=== PATIENT | female | born 1975 | race Caucasian/White ===

== ENCOUNTER 2016-12-10 19:02 | Emergency (ER) | payer SELFPAY ==
[~2016-12-10] VITALS: Wt 80.0 kg
[~2016-12-10 19:02] MED LIST: ACET325T33 PO; BACTDS PO; CIPR500T4 PO; CYCL-319 PO; HYDR-3498 PO; HYDR-906 PO; IBUP-1542 PO; NAPR-260 PO; NITR-58 PO; PHEN-537 PO; PRED20TA PO; TAMS-14 PO; TRAM50TA2 PO
== END 2016-12-10 20:30 | disposition left against medical advice (07) ==
LOC: FTE 19:02
DX: Z53.21 Procedure and treatment not carried out due to patient leaving prior to being seen by health care provider (principal)

== ENCOUNTER 2016-12-26 08:15 | Emergency (ER) | payer MEDICAID ==
[~2016-12-26] VITALS: Wt 81.0 kg
[2016-12-26] MEDS ORDERED: D-ME473S18 PO (09:15)
[2016-12-26] MEDS ORDERED: PSEU30TA38 PO (09:15)
[2016-12-26] MEDS ORDERED: BENZ100C70 PO (09:15)
[2016-12-26] MEDS ORDERED: FLUT9.9S NASAL (09:15)
--- NOTE | 2016-12-26 09:39 | ERD ---
DATE OF SERVICE: HISTORY OF PRESENT ILLNESS: The patient is a 41-year-old female complaining of a cough x3 days. Carlos gauthier has a dry cough and a headache because of nasal congestion and sinus pressure. Patient has so me ear fullness, but no pain. Mild sore throat, no shortness of breath, no fevers. Taking Tylenol, last dose was yesterday. Positive sick contacts at home. PAST MEDICAL HISTORY: Denies any other medical problems. ALLERGIES: DENIES ALLERGIES TO MEDICATIONS. PAST SURGICAL HISTORY: Denies surgeries. SOCIAL HISTORY: Denies smoking. REVIEW OF SYSTEMS: A 12-point review of systems was done. Refer to HPI for positives, all other sy stems negative. PHYSICAL EXAMINATION VITAL SIGNS: Temperature is 99, pulse 91, blood pressure 134/68, respiratory 18, O2 saturation 99% on room air. Pain intensity is 0/10. GENERAL: The patient is well-appearing, well-nourished, no acute distress. HEENT: Atraumatic. Conjunctivae are pink. Pupils equal, round, and reactive to light. There is no s cleral icterus. Tympanic membranes clear bilaterally. Oropharynx clear. No nystagmus or photophobia . CHEST: Clear to auscultation bilaterally. There are no rales, wheezes or rhonchi. HEART: Regular rate and rhythm. No murmurs, clicks, rubs or gallops. No S3 or S4. ABDOMEN: Soft, nontender and nondistended. Good bowel sounds. No rebound or guarding. No gross edward tonitis. No gross organomegaly or masses. No Barillas sign or McBurney point tenderness. SKIN: There is no apparent rash or petechia. The skin is warm and dry. DIAGNOSES: 1. Cough. 2. Upper respiratory infection, viral. MEDICAL DECISION MAKING: I have low suspicion for respiratory distress or hypoxia, low suspicion fo r pneumonia, low suspicion for meningitis or sepsis. Low suspicion for bacterial HEENT infection. The patient's exam is nonconcerning and patient is nontoxic appearing. DISCHARGE: The patient is discharged stable. Patient is given a prescription for Flonase, Sudafed, Tessalon and promethazine DM, and told to follow up with primary care within 1 to 2 days for reeval uation. The patient was told if symptoms progress or worsen to return to the ER. All other questio ns answered at time of discharge. Discharge summary given at the time of departure. Patient unders tood and complied with plan. Dictated By: WILLI FINLEY for VICENTE JACOBSON/GWEN Conf#: [id number] DID#: [id number]
== END 2016-12-26 09:41 | disposition home or self-care (01) ==
LOC: FTE 08:15
DX: J06.9 Acute upper respiratory infection, unspecified (principal)
CPT/HCPCS: 99284

== ENCOUNTER 2017-05-25 12:05 | Emergency (ER) | END 2017-05-25 14:51 | disposition home or self-care (01) | DX: M25.461 Effusion, right knee (principal); S86.911A Strain of unspecified muscle(s) and tendon(s) at lower leg level, right leg, initial encounter; W10.9XXA Fall (on) (from) unspecified stairs and steps, initial encounter; Y92.89 Other specified places as the place of occurrence of the external cause | CPT/HCPCS: 73562; Z7502; Z7610 ==

== ENCOUNTER 2018-05-27 07:21 | Emergency (ER) | END 2018-05-27 10:54 | disposition home or self-care (01) ==

== ENCOUNTER 2018-05-29 20:19 | Emergency (ER) | END 2018-05-30 00:18 | disposition home or self-care (01) ==

== ENCOUNTER 2018-06-01 18:31 | Inpatient (IN) | END 2018-06-05 18:00 | disposition home or self-care (01) | DRG 392 ==

== ENCOUNTER 2018-09-15 07:14 | Day surgery (SDC) | END 2018-09-15 11:30 | disposition home or self-care (01) ==

== ENCOUNTER 2018-11-22 08:37 | Inpatient (IN) | payer OTHER ==
[~2018-11-22] VITALS: Ht 160 cm; Wt 96.7 kg
[~2018-11-22 08:37] MED LIST changes: -ACET325T33 PO; -BACTDS PO; -CIPR500T4 PO; -CYCL-319 PO; -HYDR-3498 PO; -HYDR-906 PO; -IBUP-1542 PO; +LEVO25TA6 PO; -NAPR-260 PO; -NITR-58 PO; -PHEN-537 PO; -PRED20TA PO; -TAMS-14 PO; -TRAM50TA2 PO
[2018-11-22] MEDS ORDERED: ONDANSETRON 4 MG INJ IV STA (08:55)
[2018-11-22] MEDS ORDERED: morphine 4 MG/ML VIAL IV STA (08:55)
[2018-11-22] MEDS ORDERED: SOD CHLORIDE 0.9% 1,000 ML IV STA (08:55)
[2018-11-22] MEDS ORDERED: LEVO25TA6 PO (09:26)
[2018-11-22] MEDS ORDERED: PIPER-TAZO 3.375 GM IV (PMX) 100 ML IVPB STA (10:01)
[2018-11-22] MEDS ORDERED: ACETAMINOPHEN 325 MG TAB PO PRN (10:30)
[2018-11-22] MEDS ORDERED: ONDANSETRON 4 MG INJ IV PRN (10:30)
--- NOTE | 2018-11-22 12:39 | ERD ---
ER Documentation Chief Complaint Chief Complaint ABD PAIN, NO BM X3 DAYS HPI Patient is a 43-year-old female with a history of colitis and thyroid disease who presents with abdominal pain. She says that she had a history of colitis found on colonoscopy. She says that she has a burning abdominal pain in the left lower quadrant. It started yesterday. She tried Motrin. She has no fevers. She goes to a local clinic for her primary care. Upon review of old medical records the patient has multiple visits with previous admissions. ROS All systems reviewed and are negative except as per history of present illness. Medications Home Meds Reported Medications Levothyroxine Sodium* (Levothyroxine Sodium*) 25 Mcg Tablet, 25 MCG PO BEFORE BREAKFAST, #30 TAB 11/22/18 Discontinued Reported Medications Levothyroxine Sodium* (Levothyroxine Sodium*) Unknown Strength Tablet, 1 TAB PO BEFORE BREAKFAST, #30 TAB 06/01/18 Allergies Allergies: Coded Allergies: No Known Allergy (Verified , 11/22/18) PMhx/Soc History of Surgery: Yes (APPENDECTOMY) Anesthesia Reaction: No Hx Neurological Disorder: No Hx Respiratory Disorders: No Hx Cardiac Disorders: No Hx Psychiatric Problems: No Hx Miscellaneous Medical Probl: Yes (diverticulitis) Hx Alcohol Use: Yes (OCCASSIOANLY) Hx Substance Use: No Hx Tobacco Use: Yes (social) Smoking Status: Current some day smoker FmHx Family History: diabetes Physical Exam Vitals Vital Signs Date Temp Pulse Resp B/P (MAP) Pulse Ox O2 O2 Flow FiO2 Time Delivery Rate 11/22/18 73 15 111/68 100 Room Air 10:25 (82) 11/22/18 90 17 108/72 100 Room Air 09:10 (84) 11/22/18 98.5 92 17 134/68 100 08:46 (90) Physical Exam Const: Moderate distress Head: Atraumatic Eyes: Normal Conjunctiva ENT: Normal External Ears, Nose and Mouth. Neck: Full range of motion. No meningismus. Resp: Clear to auscultation bilaterally Cardio: Regular rate and rhythm, no murmurs Abd: Soft, left lower quadrant tenderness to palpation without rebound or guarding Skin: No petechiae or rashes Back: No midline or flank tenderness Ext: No cyanosis, or edema Neur: Awake and alert Psych: Normal Mood and Affect Result Diagram: 11/22/1891111/22/18911 Results 24 hrs Laboratory Tests Test 11/22/18 09:12 11/22/18 09:21 11/22/18 10:20 White Blood Count 12.3 10^3/ul Red Blood Count 4.64 10^6/ul Hemoglobin 13.2 g/dl Hematocrit 40.6 % Mean Corpuscular Volume 87.5 fl Mean Corpuscular Hemoglobin 28.4 pg Mean Corpuscular 32.5 g/dl Hemoglobin Concent Red Cell Distribution Width 13.5 % Platelet Count 323 10^3/UL Mean Platelet Volume 11.8 fl Immature Granulocytes % 0.700 % Neutrophils % 78.0 % Lymphocytes % 14.0 % Monocytes % 6.5 % Eosinophils % 0.6 % Basophils % 0.2 % Nucleated Red Blood Cells % 0.0 /100WBC Immature Granulocytes # 0.080 10^3/ul Neutrophils # 9.6 10^3/ul Lymphocytes # 1.7 10^3/ul Monocytes # 0.8 10^3/ul Eosinophils # 0.1 10^3/ul Basophils # 0.0 10^3/ul Nucleated Red Blood Cells # 0.0 10^3/ul Urine Color STRAW Urine Clarity CLEAR Urine pH 5.0 Urine Specific [place] 1.008 Urine Ketones NEGATIVE mg/dL Urine Nitrite NEGATIVE mg/dL Urine Bilirubin NEGATIVE mg/dL Urine Urobilinogen NEGATIVE mg/dL Urine Leukocyte Esterase NEGATIVE Edmundo/ul Urine Microscopic RBC 3 /HPF Urine Microscopic WBC 3 /HPF Urine Squamous Epithelial Cells FEW /HPF Urine Bacteria FEW /HPF Urine Hemoglobin 1+ mg/dL Urine Glucose NEGATIVE mg/dL Urine Total Protein NEGATIVE mg/dl Sodium Level 138 mmol/L Potassium Level 4.0 mmol/L Chloride Level 102 mmol/L Carbon Dioxide Level 25 mmol/L Anion Gap 11 Blood Urea Nitrogen 7 mg/dl Creatinine 0.53 mg/dl Est Glomerular Filtrat > 60 mL/min Rate mL/min Glucose Level 104 mg/dl Calcium Level 9.3 mg/dl Total Bilirubin 0.3 mg/dl Direct Bilirubin 0.00 mg/dl Indirect Bilirubin 0.3 mg/dl Aspartate Amino Transf (AST/SGOT) 24 IU/L Alanine 15 IU/L Aminotransferase (ALT/SGPT) Alkaline Phosphatase 96 IU/L Total Protein 7.7 g/dl Albumin 4.4 g/dl Globulin 3.30 g/dl Albumin/Globulin Ratio 1.33 Lipase 51 U/L POC Beta HCG, Qualitative NEGATIVE POC Venous Lactate 1.2 mmol/L Current Medications Medications Dose Sig/Shilpa Start Time Status Last (Trade) Ordered Route PRN Stop Time Admin Dose Reason Admin Sodium 1,000 ml @ Q1H STAT 11/22/18 DC 11/22/18 Chloride 1,000 mls/hr IV 08:55 09:10 11/22/18 09:54 Morphine 4 mg ONCE STAT 11/22/18 DC 11/22/18 Sulfate IV 08:55 09:11 (morphine) 11/22/18 08:56 Ondansetron 4 mg ONCE STAT 11/22/18 DC 11/22/18 HCl (Zofran IV 08:55 09:11 Inj) 11/22/18 08:56 Piperacillin 100 ml @ ONCE STAT 11/22/18 DC 11/22/18 Sod/ 200 mls/hr IVPB 10:01 10:24 Tazobactam 11/22/18 10:30 Sod Ondansetron 4 mg BRIDGE ORDER 11/22/18 HCl (Zofran PRN IV 10:30 Inj) NAUSEA/VOMITI 11/23/18 10:29 NG 650 mg ER BRIDGE 11/22/18 Acetaminophen PRN PO 10:30 (Tylenol .MILD PAIN 11/23/18 10:29 Tab) 1-3 OR TEMP Procedures/MDM CT abdomen pelvis shows acute diverticulitis per radiology. Smoking Cessation Therapy: Pt. was lectured for greater than 3 minutes on the health risks of continued smoking and the benefits of cessation. Patient is a 43-year-old female presents with acute diverticulitis. Given her recurrent diverticulitis I do believe that inpatient admission is appropriate. She will be given Zosyn after cultures are done. She will be admitted to the care of Dr. Yin as she has [facility] insurance. I doubt sepsis at this time. Departure Diagnosis: Primary Impression: Diverticulitis Condition: ASHLEY Lyle MD Nov 22, 2018 12:39
--- NOTE | 2018-11-22 14:54 | HP ---
Date/Time of Note Date/Time of Note DATE: 11/22/18 TIME: 14:39 Assessment/Plan VTE Prophylaxis SCD applied (from Nsg): Yes Pharmacological prophylaxis: NA/contraindicated Pharm contraindication: surgical contra Lines/Catheters IV Catheter Type (from Nrsg): Saline Lock Assessment/Plan Assessment/Plan -Intractable left lower quadrant abdominal pain. Continue Zofran for nausea and morphine as needed for pain. -Descending colon diverticulitis per CT of the abdomen, IV fluids, continue Zosyn. Dr. Bee is asked to see patient in gastroenterology consultation. -Sigmoid colon polyp biopsy positive for well-differentiated neuroendocrine tumor. Dr. Mac is asked to see patient in oncology consultation. Further recommendations based on clinical course. Plan of care discussed with Dr. Yin. Result Diagram: 11/22/18 0912 11/22/18 0912 Results 24hrs Laboratory Tests Test 11/22/18 09:12 11/22/18 09:21 11/22/18 10:20 White Blood Count 12.3 H Red Blood Count 4.64 Hemoglobin 13.2 Hematocrit 40.6 Mean Corpuscular Volume 87.5 Mean Corpuscular Hemoglobin 28.4 L Mean Corpuscular Hemoglobin Concent 32.5 Red Cell Distribution Width 13.5 Platelet Count 323 Mean Platelet Volume 11.8 H Immature Granulocytes % 0.700 H Neutrophils % 78.0 H Lymphocytes % 14.0 L Monocytes % 6.5 Eosinophils % 0.6 Basophils % 0.2 Nucleated Red Blood Cells % 0.0 Immature Granulocytes # 0.080 H Neutrophils # 9.6 H Lymphocytes # 1.7 Monocytes # 0.8 Eosinophils # 0.1 Basophils # 0.0 Nucleated Red Blood Cells # 0.0 Urine Color STRAW Urine Clarity CLEAR Urine pH 5.0 Urine Specific [place] 1.008 Urine Ketones NEGATIVE Urine Nitrite NEGATIVE Urine Bilirubin NEGATIVE Urine Urobilinogen NEGATIVE Urine Leukocyte Esterase NEGATIVE Urine Microscopic RBC 3 Urine Microscopic WBC 3 Urine Squamous Epithelial Cells FEW Urine Bacteria FEW A Urine Hemoglobin 1+ H Urine Glucose NEGATIVE Urine Total Protein NEGATIVE Sodium Level 138 Potassium Level 4.0 Chloride Level 102 Carbon Dioxide Level 25 Anion Gap 11 Blood Urea Nitrogen 7 Creatinine 0.53 Est Glomerular Filtrat Rate mL/min > 60 Glucose Level 104 Calcium Level 9.3 Total Bilirubin 0.3 Direct Bilirubin 0.00 Indirect Bilirubin 0.3 Aspartate Amino Transf (AST/SGOT) 24 Alanine Aminotransferase (ALT/SGPT) 15 Alkaline Phosphatase 96 Total Protein 7.7 Albumin 4.4 Globulin 3.30 H Albumin/Globulin Ratio 1.33 Lipase 51 POC Beta HCG, Qualitative NEGATIVE POC Venous Lactate 1.2 HPI/ROS Admit Date/Time Admit Date/Time Hx of Present Illness Patient is a 43-year-old female known to me from previous admission in May 2018 when patient was admitted and treated for diverticulitis and urinary tract infection. Patient was evaluated by Dr. Bee and on discharged advised to follow-up for colonoscopy. Patient underwent colonoscopy 2 months ago with [facility], per records sigmoid colon polyp biopsy was positive for well- differentiated neuroendocrine tumor. Patient presented to the emergency today with complaints of burning abdominal pain in the left lower quadrant that started yesterday pain was not relieved by Motrin. Patient also complains of chills however denies any fever denies any chest pain denies any shortness of breath. Patient complains of nausea denies diarrhea. Patient underwent CT of the abdomen and pelvis which revealed distal descending colon diverticulitis, no evidence of diverticular perforation or abscess,hepatomegaly and moderate hepatic steatosis. Patient was given morphine and Zofran as well as IV fluids and Zosyn. Patient will be admitted for further evaluation and management. ROS 12 point review of system is negative except for what mentioned in HPI PMH/Family/Social Past Medical History Medical History: hypothyroid Medications Current Medications Ondansetron HCl (Zofran Inj) 4 mg BRIDGE ORDER PRN IV NAUSEA/VOMITING; Start 11/22/18 at 10:30; Stop 11/23/18 at 10:29 Acetaminophen (Tylenol Tab) 650 mg ER BRIDGE PRN PO .MILD PAIN 1-3 OR TEMP; Start 11/22/18 at 10:30; Stop 11/23/18 at 10:29 Coded Allergies: No Known Allergy (Verified , 11/22/18) Past Surgical History Past Surgical Hx: appendectomy, other Family History Significant Family History: diabetes, hypertension Social History Alcohol Use: occasionally Smoking Status: Current some day smoker Drug Use: none Exam/Review of Systems Vital Signs Vitals Vital Signs Date Temp Pulse Resp B/P (MAP) Pulse Ox O2 O2 Flow FiO2 Time Delivery Rate 11/22/18 98.5 81 19 120/70 100 Room Air 14:16 (87) Exam Constitutional: alert, oriented Head: normocephalic Neck: supple Respiratory: clear to auscultation Cardiovascular: regular rate and rhythm Gastrointestinal: soft, tender Musculoskeletal: nl extremities to inspection Extremities: normal pulses Neurological: nl mental status JORGE RAY Nov 22, 2018 14:50
[2018-11-22 15:17] VITALS: BP 115/74; PULSE 85; RESP 18
[2018-11-22] MEDS: morphine 2 MG INJ IV PRN ×2 (15:20→19:40)
[2018-11-22] MEDS: D5W-0.45 NACL + KCL 20 MEQ 1,000 ML IV SCH (15:20)
[2018-11-22] MEDS: ONDANSETRON 4 MG INJ IV PRN (15:20)
[2018-11-22 15:33] VITALS: Ht 160 cm; Wt 96.7 kg
--- NOTE | 2018-11-22 18:06 | CONS ---
DATE OF ADMISSION: 11/22/2018 DATE OF CONSULTATION: 11/22/2018 HISTORY OF PRESENT ILLNESS: The patient is a 43-year-old female admitted to the hospital for left lo wer quadrant abdominal pain. This was associated with nausea and vomiting so she came to the emergen cy room. In the ER, she was evaluated and found to have a diverticulitis so admitted for further man agement. GI consult was called in because of the polyp in the sigmoid colon which turned out to be c arcinoid tumor. The patient has abdominal discomfort. 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 HOME MEDICATION: She is on levothyroxine. ALLERGIES: NONE. PAST MEDICAL HISTORY: Appendicectomy, occasional alcohol use, history of diverticulitis in the past, occasional smoker. FAMILY HISTORY: Diabetes mellitus. PHYSICAL EXAMINATION: GENERAL: Overweight, not in distress. VITAL SIGNS: Stable. HEENT: Unremarkable. NECK: Supple. No thyromegaly. No lymphadenopathy. CARDIOVASCULAR: No murmur, gallop or click. LUNGS: Clear. ABDOMEN: Tenderness in the left lower quadrant. EXTREMITIES: No edema. CENTRAL NERVOUS SYSTEM: Grossly within normal limit. LABORATORY DATA: WBC is 12.3. Hematocrit is 28.4. IMPRESSION: 1. A 1 cm carcinoid tumor in the sigmoid colon going up to muscularis mucosa, not involving the subm ucosa. Again, I will verify with the pathologist. 2. Diverticulitis. 3. Obesity. PLAN: Continue antibiotic. Monitor WBC count. Once the white cell count comes down and symptom imp roves, we will advance the diet slowly. The patient definitely needs either band ligation of the flakito yp or EMR which can be done as an outpatient after 2 months. I have discussed with the patient and t he . Dictated By: ORTIZ TERESA/NTS Conf#: [id number] DID#: [id number] CC: TALI VIDES MD;*EndCC*
[2018-11-22 20:00] VITALS: BP 98/55; PULSE 92; RESP 18
[2018-11-23] MEDS: D5W-0.45 NACL + KCL 20 MEQ 1,000 ML IV SCH ×2 (00:59→12:29)
[2018-11-23] MEDS: morphine 2 MG INJ IV PRN ×4 (00:59→23:09)
[2018-11-23] MEDS: ONDANSETRON 4 MG INJ IV PRN ×2 (01:06→20:34)
[2018-11-23 02:00] VITALS: BP 112/63; PULSE 84; RESP 18
[2018-11-23] MEDS: PANTOPRAZOLE 40 MG INJ IV SCH (05:21)
[2018-11-23 07:36] VITALS: BP 93/54; PULSE 71; RESP 16
--- NOTE | 2018-11-23 12:22 | CONS ---
Assessment/Plan Assessment/Plan Assessment/Plan (Daily) 1. A 1 cm carcinoid tumor in the sigmoid colon going up to muscularis mucosa, not involving the submucosa. Again, I will verify with the pathologist. 2. Diverticulitis. 3. Obesity. Plan Continue antibiotic Clear liquid diet Monitor WBC count and pain Consultation Date/Type/Reason Admit Date/Time Nov 22, 2018 at 10:29 Initial Consult Date Date/Time of Note DATE: 11/23/18 TIME: 12:22 24 HR Interval Summary Free Text/Dictation Pain reduced by 20% Constitutional: no complaints, improved Exam/Review of Systems Exam Vitals Vital Signs Date Temp Pulse Resp B/P (MAP) Pulse Ox O2 O2 Flow FiO2 Time Delivery Rate 11/23/18 98.0 71 16 93/54 (67) 97 Room Air 07:36 Intake and Output 11/22/18 11/22/18 11/23/18 1515:00 23:00 07:00 IntakeIntake Total 1400 ml BalanceBalance 1400 ml Constitutional: alert, oriented, well developed Psych: no complaints, nl mood/affect Head: normocephalic, atraumatic Eyes: nl conjunctiva, EOMI, nl lids, nl sclera, PERRL ENMT: nl external ears & nose, nl lips & teeth, nl nasal mucosa & septum Neck: supple, non-tender Respiratory: clear to auscultation, normal air movement Cardiovascular: regular rate and rhythm, nl pulses Gastrointestinal: soft, nl liver, spleen, non-tender Musculoskeletal: nl extremities to inspection, nl gait and stance Extremities: normal pulses Neurological: SCRUM MASTER II-XII intact, nl mental status, nl speech, nl strength Skin: nl turgor; No rash or lesions Lymph: nl lymph nodes Results Result Diagram: 11/23/18 0446 11/23/186 Results 24hrs Laboratory Tests Test 11/22/18 15:04 11/23/18 04:46 Lactic Acid Level 1.1 White Blood Count 8.5 # Red Blood Count 4.07 L Hemoglobin 11.5 L Hematocrit 35.9 L Mean Corpuscular Volume 88.2 Mean Corpuscular Hemoglobin 28.3 L Mean Corpuscular Hemoglobin Concent 32.0 Red Cell Distribution Width 13.8 Platelet Count 274 Mean Platelet Volume 12.2 H Immature Granulocytes % 0.400 Neutrophils % 68.7 Lymphocytes % 20.0 Monocytes % 7.3 Eosinophils % 2.9 Basophils % 0.7 Nucleated Red Blood Cells % 0.0 Immature Granulocytes # 0.030 Neutrophils # 5.8 Lymphocytes # 1.7 Monocytes # 0.6 Eosinophils # 0.3 Basophils # 0.1 Nucleated Red Blood Cells # 0.0 Sodium Level 137 Potassium Level 4.3 Chloride Level 104 Carbon Dioxide Level 25 Anion Gap 8 Blood Urea Nitrogen 5 L Creatinine 0.57 Est Glomerular Filtrat Rate mL/min > 60 Glucose Level 115 Calcium Level 8.6 Phosphorus Level 3.8 Magnesium Level 2.2 Total Bilirubin 0.3 Direct Bilirubin 0.00 Indirect Bilirubin 0.3 Aspartate Amino Transf (AST/SGOT) 16 Alanine Aminotransferase (ALT/SGPT) 24 Alkaline Phosphatase 73 Total Protein 6.1 # Albumin 3.3 # Globulin 2.80 Albumin/Globulin Ratio 1.17 Free Thyroxine Index 2.00 Thyroxine (T4) 6.0 Triiodothyronine (T3) Uptake 33.4 Medications Medication Current Medications Potassium Chloride/Dextrose/ Sod Cl 1,000 ml @ 100 mls/hr Q10H IV Last administered on 11/23/18at 00:59; Admin Dose 100 MLS/HR; Start 11/22/18 at 14:57 Ondansetron HCl (Zofran Inj) 4 mg Q6H PRN IV NAUSEA/VOMITING Last administered on 11/23/18 01:06; Admin Dose 4 MG; Start 11/22/18 at 15:00 Morphine Sulfate (morphine) 2 mg Q4H PRN IV .SEVERE PAIN 7-10 Last administered on 11/23/18at 09:39; Admin Dose 2 MG; Start 11/22/18 at 15:00 Pantoprazole (Protonix Iv) 40 mg DAILY@06 IV Last administered on 11/23/18 05:21; Admin Dose 40 MG; Start 11/23/18 at 06:00 Piperacillin Sod/ Tazobactam Sod 100 ml @ 200 mls/hr Q6 IVPB ; Start 11/23/18 at 12:30 ORTIZ YODER MD Nov 23, 2018 12:22
--- NOTE | 2018-11-23 12:26 | PN ---
Date/Time of Note Date/Time of Note DATE: 11/23/18 TIME: 12:12 Assessment/Plan VTE Prophylaxis Risk score (from Ns)>0 risk: 2 SCD applied (from Ns): Yes Pharmacological prophylaxis: NA/contraindicated, other Pharm contraindication: other Lines/Catheters IV Catheter Type (from [facility]): Peripheral IV Assessment/Plan Hospital Course Patient still has abdominal tenderness controlled with current pain medication, no nausea. Patient will start patient on clear liquid diet, plan of care discussed with Dr. Bee continue current care. Assessment/Plan -Intractable left lower quadrant abdominal pain. Continue Zofran for nausea and morphine as needed for pain. -Descending colon diverticulitis per CT of the abdomen, IV fluids, continue Zosyn. Dr. Bee is following in gastroenterology consultation. -Sigmoid colon polyp biopsy positive for well-differentiated neuroendocrine tumor. Plan needs colonoscopy and carcinoid tumor removal by Dr. Bee when patient recovers from diverticulitis as an outpatient in [address] Mac is following in oncology consultation. -Obesity with BMI of 37.8 Further recommendations based on clinical course. Plan of care discussed with Dr. Yin. Result Diagram: 11/23/18 0446 11/23/18 0446 Results 24hrs Laboratory Tests Test 11/22/18 15:04 11/23/18 04:46 Lactic Acid Level 1.1 White Blood Count 8.5 # Red Blood Count 4.07 L Hemoglobin 11.5 L Hematocrit 35.9 L Mean Corpuscular Volume 88.2 Mean Corpuscular Hemoglobin 28.3 L Mean Corpuscular Hemoglobin Concent 32.0 Red Cell Distribution Width 13.8 Platelet Count 274 Mean Platelet Volume 12.2 H Immature Granulocytes % 0.400 Neutrophils % 68.7 Lymphocytes % 20.0 Monocytes % 7.3 Eosinophils % 2.9 Basophils % 0.7 Nucleated Red Blood Cells % 0.0 Immature Granulocytes # 0.030 Neutrophils # 5.8 Lymphocytes # 1.7 Monocytes # 0.6 Eosinophils # 0.3 Basophils # 0.1 Nucleated Red Blood Cells # 0.0 Sodium Level 137 Potassium Level 4.3 Chloride Level 104 Carbon Dioxide Level 25 Anion Gap 8 Blood Urea Nitrogen 5 L Creatinine 0.57 Est Glomerular Filtrat Rate mL/min > 60 Glucose Level 115 Calcium Level 8.6 Phosphorus Level 3.8 Magnesium Level 2.2 Total Bilirubin 0.3 Direct Bilirubin 0.00 Indirect Bilirubin 0.3 Aspartate Amino Transf (AST/SGOT) 16 Alanine Aminotransferase (ALT/SGPT) 24 Alkaline Phosphatase 73 Total Protein 6.1 # Albumin 3.3 # Globulin 2.80 Albumin/Globulin Ratio 1.17 Free Thyroxine Index 2.00 Thyroxine (T4) 6.0 Triiodothyronine (T3) Uptake 33.4 Exam/Review of Systems Exam Vitals Vital Signs Date Temp Pulse Resp B/P (MAP) Pulse Ox O2 O2 Flow FiO2 Time Delivery Rate 11/23/18 98.0 71 16 93/54 (67) 97 Room Air 07:36 Intake and Output 11/22/18 11/22/18 11/23/18 1515:00 23:00 07:00 IntakeIntake Total 1400 ml BalanceBalance 1400 ml Exam Constitutional: alert, oriented Respiratory: clear to auscultation Cardiovascular: regular rate and rhythm Gastrointestinal: soft, tender Musculoskeletal: nl extremities to inspection Extremities: normal pulses Neurological: nl mental status Results Results 24hrs Laboratory Tests Test 11/22/18 15:04 11/23/18 04:46 Lactic Acid Level 1.1 White Blood Count 8.5 # Red Blood Count 4.07 L Hemoglobin 11.5 L Hematocrit 35.9 L Mean Corpuscular Volume 88.2 Mean Corpuscular Hemoglobin 28.3 L Mean Corpuscular Hemoglobin Concent 32.0 Red Cell Distribution Width 13.8 Platelet Count 274 Mean Platelet Volume 12.2 H Immature Granulocytes % 0.400 Neutrophils % 68.7 Lymphocytes % 20.0 Monocytes % 7.3 Eosinophils % 2.9 Basophils % 0.7 Nucleated Red Blood Cells % 0.0 Immature Granulocytes # 0.030 Neutrophils # 5.8 Lymphocytes # 1.7 Monocytes # 0.6 Eosinophils # 0.3 Basophils # 0.1 Nucleated Red Blood Cells # 0.0 Sodium Level 137 Potassium Level 4.3 Chloride Level 104 Carbon Dioxide Level 25 Anion Gap 8 Blood Urea Nitrogen 5 L Creatinine 0.57 Est Glomerular Filtrat Rate mL/min > 60 Glucose Level 115 Calcium Level 8.6 Phosphorus Level 3.8 Magnesium Level 2.2 Total Bilirubin 0.3 Direct Bilirubin 0.00 Indirect Bilirubin 0.3 Aspartate Amino Transf (AST/SGOT) 16 Alanine Aminotransferase (ALT/SGPT) 24 Alkaline Phosphatase 73 Total Protein 6.1 # Albumin 3.3 # Globulin 2.80 Albumin/Globulin Ratio 1.17 Free Thyroxine Index 2.00 Thyroxine (T4) 6.0 Triiodothyronine (T3) Uptake 33.4 Medications Medication Current Medications Potassium Chloride/Dextrose/ Sod Cl 1,000 ml @ 100 mls/hr Q10H IV Last admin istered on 11/23/18 00:59; Admin Dose 100 MLS/HR; Start 11/22/18 at 14:57 Ondansetron HCl (Zofran Inj) 4 mg Q6H PRN IV NAUSEA/VOMITING Last administered on 11/23/18 01:06; Admin Dose 4 MG; Start 11/22/18 at 15:00 Morphine Sulfate (morphine) 2 mg Q4H PRN IV .SEVERE PAIN 7-10 Last administered on 11/23/18 09:39; Admin Dose 2 MG; Start 11/22/18 at 15:00 Pantoprazole (Protonix Iv) 40 mg DAILY@06 IV Last administered on 11/23/18 05:21; Admin Dose 40 MG; Start 11/23/18 at 06:00 JORGE RAY Nov 23, 2018 12:22
[2018-11-23] MEDS: PIPER-TAZO 3.375 GM IV (PMX) 100 ML IVPB SCH ×2 (12:28→17:55)
[2018-11-23] MEDS ORDERED: HYDROCODONE/APAP (5/325) TAB PO PRN (13:00)
--- NOTE | 2018-11-23 13:13 | CONS ---
Assessment/Plan Assessment/Plan Assessment/Plan (Daily) #Sigmoid colon neuroendocrine tumor -after discussion with GI, it appears the tumor extends to the submucosa -I am in agreement that patient will band ligation of the polyp or EMR which can be done as an outpatient after 2 months. -pt can follow up with me as an out patient, but there is no indication for adjuvant therapy in such an early stage neuroendocrine tumor Thank you for the opportunity to participate in this patients care A total of 40 minutes of face to face time was spent speaking with the patient, of which greater than 50% was spent in counseling and coordination of care and the detailed question and answer session. Consultation Date/Type/Reason Admit Date/Time Nov 22, 2018 at 10:29 Date of Consultation: Nov 23, 2018 Type of Consult oncology Reason for Consultation sigmoid colon neuroendocrine tumor Requesting Provider: TALI VIDES MD Date/Time of Note DATE: 11/23/18 TIME: 13:06 Hx of Present Illness 43 yo female initially admitted May 2018 with abdominal pain and treated for diverticulitis. Pt then underwent an out patient colonoscopy which reveal a sigmoid colon polyp which was biopsy proven well-differentiated neuroendocrine tumor. WE have been consulted for further workup. Constitutional: poor po Eyes: no complaints ENT: no complaints Respiratory: no complaints Cardiovascular: no complaints Gastrointestinal: pain, decreased appetite Genitourinary: no complaints Musculoskeletal: bone/joint pain Neurologic: no complaints Endocrine: no complaints Lymphatic: no complaints Past Medical History Medical History: hypothyroid Home Meds Reported Medications Levothyroxine Sodium* (Levothyroxine Sodium*) 25 Mcg Tablet, 25 MCG PO BEFORE BREAKFAST, #30 TAB 11/22/18 Discontinued Reported Medications Levothyroxine Sodium* (Levothyroxine Sodium*) Unknown Strength Tablet, 1 TAB PO BEFORE BREAKFAST, #30 TAB 06/01/18 Medications Current Medications Potassium Chloride/Dextrose/ Sod Cl 1,000 ml @ 60 mls/hr [id number] IV Last administered on 11/23/18at 12:29; Admin Dose 60 MLS/HR; Start 11/22/18 at 14:57 Ondansetron HCl (Zofran Inj) 4 mg Q6H PRN IV NAUSEA/VOMITING Last administered on 11/23/18at 01:06; Admin Dose 4 MG; Start 11/22/18 at 15:00 Morphine Sulfate (morphine) 2 mg Q4H PRN IV .SEVERE PAIN 7-10 Last administered on 11/23/18at 09:39; Admin Dose 2 MG; Start 11/22/18 at 15:00 Pantoprazole (Protonix Iv) 40 mg DAILY@06 IV Last administered on 11/23/18at 05:21; Admin Dose 40 MG; Start 11/23/18 at 06:00 Piperacillin Sod/ Tazobactam Sod 100 ml @ 200 mls/hr Q6 IVPB Last administered on 11/23/18at 12:28; Admin Dose 200 MLS/HR; Start 11/23/18 at 12:30 Acetaminophen/ Hydrocodone Bitart ([place] (5/325)) 1 tab Q4H PRN PO MODERATE PAIN LEVEL 4-6; Start 11/23/18 at 13:00 Allergies: Coded Allergies: No Known Allergy (Verified , 11/22/18) Past Surgical History Past Surgical Hx: appendectomy, other Family History Significant Family History: no pertinent family hx Social History Alcohol Use: occasionally Smoking Status: Former smoker Drug Use: none Exam/Review of Systems Exam Vitals Vital Signs Date Temp Pulse Resp B/P (MAP) Pulse Ox O2 O2 Flow FiO2 Time Delivery Rate 11/23/18 98.0 71 16 93/54 (67) 97 Room Air 07:36 Intake and Output 11/22/18 11/22/18 11/23/18 1515:00 23:00 07:00 IntakeIntake Total 1400 ml BalanceBalance 1400 ml Constitutional: alert, oriented Psych: no complaints Head: normocephalic Eyes: nl conjunctiva ENMT: nl external ears & nose Neck: supple Respiratory: clear to auscultation Cardiovascular: regular rate and rhythm Gastrointestinal: soft, tender Musculoskeletal: nl extremities to inspection Results Result Diagram: 11/23/18 0446 11/23/186 Results 24hrs Laboratory Tests Test 11/22/18 15:04 11/23/18 04:46 Lactic Acid Level 1.1 White Blood Count 8.5 # Red Blood Count 4.07 L Hemoglobin 11.5 L Hematocrit 35.9 L Mean Corpuscular Volume 88.2 Mean Corpuscular Hemoglobin 28.3 L Mean Corpuscular Hemoglobin Concent 32.0 Red Cell Distribution Width 13.8 Platelet Count 274 Mean Platelet Volume 12.2 H Immature Granulocytes % 0.400 Neutrophils % 68.7 Lymphocytes % 20.0 Monocytes % 7.3 Eosinophils % 2.9 Basophils % 0.7 Nucleated Red Blood Cells % 0.0 Immature Granulocytes # 0.030 Neutrophils # 5.8 Lymphocytes # 1.7 Monocytes # 0.6 Eosinophils # 0.3 Basophils # 0.1 Nucleated Red Blood Cells # 0.0 Sodium Level 137 Potassium Level 4.3 Chloride Level 104 Carbon Dioxide Level 25 Anion Gap 8 Blood Urea Nitrogen 5 L Creatinine 0.57 Est Glomerular Filtrat Rate mL/min > 60 Glucose Level 115 Calcium Level 8.6 Phosphorus Level 3.8 Magnesium Level 2.2 Total Bilirubin 0.3 Direct Bilirubin 0.00 Indirect Bilirubin 0.3 Aspartate Amino Transf (AST/SGOT) 16 Alanine Aminotransferase (ALT/SGPT) 24 Alkaline Phosphatase 73 Total Protein 6.1 # Albumin 3.3 # Globulin 2.80 Albumin/Globulin Ratio 1.17 Free Thyroxine Index 2.00 Thyroxine (T4) 6.0 Triiodothyronine (T3) Uptake 33.4 Medications Medication Current Medications Potassium Chloride/Dextrose/ Sod Cl 1,000 ml @ 60 mls/hr [id number] IV Last administered on 11/23/18 12:29; Admin Dose 60 MLS/HR; Start 11/22/18 at 14:57 Ondansetron HCl (Zofran Inj) 4 mg Q6H PRN IV NAUSEA/VOMITING Last administered on 11/23/18 01:06; Admin Dose 4 MG; Start 11/22/18 at 15:00 Morphine Sulfate (morphine) 2 mg Q4H PRN IV .SEVERE PAIN 7-10 Last administered on 11/23/18 09:39; Admin Dose 2 MG; Start 11/22/18 at 15:00 Pantoprazole (Protonix Iv) 40 mg DAILY@06 IV Last administered on 11/23/18 05:21; Admin Dose 40 MG; Start 11/23/18 at 06:00 Piperacillin Sod/ Tazobactam Sod 100 ml @ 200 mls/hr Q6 IVPB Last administered on 11/23/18at 12:28; Admin Dose 200 MLS/HR; Start 11/23/18 at 12:30 Acetaminophen/ Hydrocodone Bitart ([place] (5/325)) 1 tab Q4H PRN PO MODERATE PAIN LEVEL 4-6; Start 11/23/18 at 13:00 ALFRED RABAGO M.D. Nov 23, 2018 13:13
[2018-11-23 14:23] VITALS: BP 125/77; PULSE 85; RESP 16
[2018-11-23 20:06] VITALS: BP 95/61; PULSE 73; RESP 18
[2018-11-24] MEDS: PIPER-TAZO 3.375 GM IV (PMX) 100 ML IVPB SCH ×4 (00:43→17:28)
[2018-11-24 02:00] VITALS: BP 92/56; PULSE 68; RESP 18
[2018-11-24] MEDS: PANTOPRAZOLE 40 MG INJ IV SCH (06:08)
[2018-11-24] MEDS: D5W-0.45 NACL + KCL 20 MEQ 1,000 ML IV SCH ×2 (06:12→19:17)
[2018-11-24 08:49] VITALS: BP 106/63; PULSE 69; RESP 18
--- NOTE | 2018-11-24 10:47 | PN ---
Date/Time of Note Date/Time of Note DATE: 11/24/18 TIME: 10:47 Assessment/Plan VTE Prophylaxis Risk score (from Nsg)>0 risk: 2 SCD applied (from Nsg): Yes Lines/Catheters IV Catheter Type (from Nrsg): Peripheral IV Assessment/Plan Assessment/Plan -Intractable left lower quadrant abdominal pain. Continue Zofran for nausea and morphine as needed for pain. -Descending colon diverticulitis per CT of the abdomen, IV fluids, continue Zosyn. Dr. Bee is asked to see patient in gastroenterology consultation. -Sigmoid colon polyp biopsy positive for well-differentiated neuroendocrine tumor. Dr. Mac is asked to see patient in oncology consultation. Further recommendations based on clinical course. Plan of care discussed with Dr. Yin. Result Diagram: 11/24/18 0507 11/24/18 0507 Results 24hrs Laboratory Tests Test 11/24/18 05:07 White Blood Count 7.5 Red Blood Count 3.94 L Hemoglobin 11.3 L Hematocrit 35.1 L Mean Corpuscular Volume 89.1 Mean Corpuscular Hemoglobin 28.7 L Mean Corpuscular Hemoglobin Concent 32.2 Red Cell Distribution Width 13.8 Platelet Count 294 Mean Platelet Volume 12.1 H Immature Granulocytes % 0.300 Neutrophils % 63.4 Lymphocytes % 23.4 Monocytes % 7.4 Eosinophils % 4.7 Basophils % 0.8 Nucleated Red Blood Cells % 0.0 Immature Granulocytes # 0.020 Neutrophils # 4.7 Lymphocytes # 1.8 Monocytes # 0.6 Eosinophils # 0.4 Basophils # 0.1 Nucleated Red Blood Cells # 0.0 Sodium Level 138 Potassium Level 3.8 Chloride Level 106 Carbon Dioxide Level 24 Anion Gap 8 Blood Urea Nitrogen 5 L Creatinine 0.54 Est Glomerular Filtrat Rate mL/min > 60 Glucose Level 92 Calcium Level 8.6 Exam/Review of Systems Exam Vitals Vital Signs Date Temp Pulse Resp B/P (MAP) Pulse Ox O2 O2 Flow FiO2 Time Delivery Rate 11/24/18 98.0 69 18 106/63 97 08:49 (77) 11/23/18 Room Air 14:23 Intake and Output 11/23/18 11/23/18 11/24/18 1515:00 23:00 07:00 IntakeIntake Total 940 ml 300 ml 900 ml BalanceBalance 940 ml 300 ml 900 ml Results Results 24hrs Laboratory Tests Test 11/24/18 05:07 White Blood Count 7.5 Red Blood Count 3.94 L Hemoglobin 11.3 L Hematocrit 35.1 L Mean Corpuscular Volume 89.1 Mean Corpuscular Hemoglobin 28.7 L Mean Corpuscular Hemoglobin Concent 32.2 Red Cell Distribution Width 13.8 Platelet Count 294 Mean Platelet Volume 12.1 H Immature Granulocytes % 0.300 Neutrophils % 63.4 Lymphocytes % 23.4 Monocytes % 7.4 Eosinophils % 4.7 Basophils % 0.8 Nucleated Red Blood Cells % 0.0 Immature Granulocytes # 0.020 Neutrophils # 4.7 Lymphocytes # 1.8 Monocytes # 0.6 Eosinophils # 0.4 Basophils # 0.1 Nucleated Red Blood Cells # 0.0 Sodium Level 138 Potassium Level 3.8 Chloride Level 106 Carbon Dioxide Level 24 Anion Gap 8 Blood Urea Nitrogen 5 L Creatinine 0.54 Est Glomerular Filtrat Rate mL/min > 60 Glucose Level 92 Calcium Level 8.6 Medications Medication Current Medications Potassium Chloride/Dextrose/ Sod Cl 1,000 ml @ 60 mls/hr [id number] IV Last a dministered on 11/24/18 06:12; Admin Dose 60 MLS/HR; Start 11/22/18 at 14:57 Ondansetron HCl (Zofran Inj) 4 mg Q6H PRN IV NAUSEA/VOMITING Last administered on 11/23/18 20:34; Admin Dose 4 MG; Start 11/22/18 at 15:00 Morphine Sulfate (morphine) 2 mg Q4H PRN IV .SEVERE PAIN 7-10 Last administered on 11/23/18 23:09; Admin Dose 2 MG; Start 11/22/18 at 15:00 Pantoprazole (Protonix Iv) 40 mg DAILY@06 IV Last administered on 11/24/18 06:08; Admin Dose 40 MG; Start 11/23/18 at 06:00 Piperacillin Sod/ Tazobactam Sod 100 ml @ 200 mls/hr Q6 IVPB Last administered on 11/24/18 06:08; Admin Dose 200 MLS/HR; Start 11/23/18 at 12:30 Acetaminophen/ Hydrocodone Bitart ([place] (5/325)) 1 tab Q4H PRN PO MODERATE PAIN LEVEL 4-6 Last administered on 11/23/18 15:29; Admin Dose 1 TAB; Start 11/23/18 at 13:00 RENEE HENRY Nov 24, 2018 10:47 am
--- NOTE | 2018-11-24 11:48 | CONS ---
Assessment/Plan Assessment/Plan Assessment/Plan (Daily) Assessment/Plan Assessment/Plan Assessment/Plan (Daily) 1. A 1 cm carcinoid tumor in the sigmoid colon going up to muscularis mucosa, not involving the submucosa. Again, I will verify with the pathologist. 2. Diverticulitis. 3. Obesity. Plan Continue antibiotic Clear liquid diet Monitor WBC count and pain Advance diet as tolerated by patient Consultation Date/Type/Reason Admit Date/Time Nov 22, 2018 at 10:29 Initial Consult Date Requesting Provider: TALI VIDES MD Date/Time of Note DATE: 11/24/18 TIME: 11:48 24 HR Interval Summary Free Text/Dictation Patient wants regular food Constitutional: no complaints, improved Exam/Review of Systems Exam Vitals Vital Signs Date Temp Pulse Resp B/P (MAP) Pulse Ox O2 O2 Flow FiO2 Time Delivery Rate 11/24/18 98.0 69 18 106/63 97 08:49 (77) 11/23/18 Room Air 14:23 Intake and Output 11/23/18 11/23/18 11/24/18 1515:00 23:00 07:00 IntakeIntake Total 940 ml 300 ml 900 ml BalanceBalance 940 ml 300 ml 900 ml Constitutional: alert, oriented, well developed Psych: no complaints, nl mood/affect Head: normocephalic, atraumatic Eyes: nl conjunctiva, EOMI, nl lids, nl sclera, PERRL ENMT: nl external ears & nose, nl lips & teeth, nl nasal mucosa & septum Neck: supple, non-tender Respiratory: clear to auscultation, normal air movement Cardiovascular: regular rate and rhythm, nl pulses Gastrointestinal: soft, nl liver, spleen, non-tender Musculoskeletal: nl extremities to inspection, nl gait and stance Extremities: normal pulses 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, nl mental status, nl speech, nl strength Skin: nl turgor; No rash or lesions Lymph: nl lymph nodes Results Result Diagram: 11/24/18 0507 11/24/18 0507 Results 24hrs Laboratory Tests Test 11/24/18 05:07 White Blood Count 7.5 Red Blood Count 3.94 L Hemoglobin 11.3 L Hematocrit 35.1 L Mean Corpuscular Volume 89.1 Mean Corpuscular Hemoglobin 28.7 L Mean Corpuscular Hemoglobin Concent 32.2 Red Cell Distribution Width 13.8 Platelet Count 294 Mean Platelet Volume 12.1 H Immature Granulocytes % 0.300 Neutrophils % 63.4 Lymphocytes % 23.4 Monocytes % 7.4 Eosinophils % 4.7 Basophils % 0.8 Nucleated Red Blood Cells % 0.0 Immature Granulocytes # 0.020 Neutrophils # 4.7 Lymphocytes # 1.8 Monocytes # 0.6 Eosinophils # 0.4 Basophils # 0.1 Nucleated Red Blood Cells # 0.0 Sodium Level 138 Potassium Level 3.8 Chloride Level 106 Carbon Dioxide Level 24 Anion Gap 8 Blood Urea Nitrogen 5 L Creatinine 0.54 Est Glomerular Filtrat Rate mL/min > 60 Glucose Level 92 Calcium Level 8.6 Medications Medication Current Medications Potassium Chloride/Dextrose/ Sod Cl 1,000 ml @ 60 mls/hr [id number] IV Last administered on 11/24/18 06:12; Admin Dose 60 MLS/HR; Start 11/22/18 at 14:57 Ondansetron HCl (Zofran Inj) 4 mg Q6H PRN IV NAUSEA/VOMITING Last administered on 11/23/18 20:34; Admin Dose 4 MG; Start 11/22/18 at 15:00 Morphine Sulfate (morphine) 2 mg Q4H PRN IV .SEVERE PAIN 7-10 Last administered on 11/23/18 23:09; Admin Dose 2 MG; Start 11/22/18 at 15:00 Pantoprazole (Protonix Iv) 40 mg DAILY@06 IV Last administered on 11/24/18 06:08; Admin Dose 40 MG; Start 11/23/18 at 06:00 Piperacillin Sod/ Tazobactam Sod 100 ml @ 200 mls/hr Q6 IVPB Last administered on 11/24/18 06:08; Admin Dose 200 MLS/HR; Start 11/23/18 at 12:30 Acetaminophen/ Hydrocodone Bitart ([place] (5/325)) 1 tab Q4H PRN PO MODERATE PAIN LEVEL 4-6 Last administered on 11/23/18 15:29; Admin Dose 1 TAB; Start 11/23/18 at 13:00 ORTIZ YODER MD Nov 24, 2018 11:48
[2018-11-24 15:22] VITALS: BP 100/57; PULSE 71; RESP 18
[2018-11-24] MEDS: ACETAMINOPHEN 325 MG TAB PO PRN ×2 (17:27→21:46)
[2018-11-24 19:52] VITALS: BP 98/56; PULSE 67; RESP 18
[2018-11-25] MEDS: PIPER-TAZO 3.375 GM IV (PMX) 100 ML IVPB SCH ×5 (00:12→23:44)
[2018-11-25 02:55] VITALS: BP 110/55; PULSE 65; RESP 18
[2018-11-25] MEDS: D5W-0.45 NACL + KCL 20 MEQ 1,000 ML IV SCH ×3 (06:10→23:51)
[2018-11-25] MEDS: PANTOPRAZOLE 40 MG INJ IV SCH (06:11)
[2018-11-25 07:28] VITALS: BP 118/60; PULSE 56; RESP 18
[2018-11-25 13:37] VITALS: BP 108/63; PULSE 63; RESP 18
--- NOTE | 2018-11-25 14:06 | PN ---
Date/Time of Note Date/Time of Note DATE: 11/25/18 TIME: 14:06 Assessment/Plan VTE Prophylaxis Risk score (from Nsg)>0 risk: 2 SCD applied (from Nsg): Yes Lines/Catheters IV Catheter Type (from Nrsg): Peripheral IV Assessment/Plan Assessment/Plan -Intractable left lower quadrant abdominal pain. Continue Zofran for nausea and morphine as needed for pain. -Descending colon diverticulitis per CT of the abdomen, IV fluids, continue Zosyn. Dr. Bee is asked to see patient in gastroenterology consultation. -Sigmoid colon polyp biopsy positive for well-differentiated neuroendocrine tumor. Dr. Mac is asked to see patient in oncology consultation. Further recommendations based on clinical course. Plan of care discussed with Dr. Yin. Result Diagram: 11/25/1834 11/25/18 0534 Results 24hrs Laboratory Tests Test 11/25/18 05:34 White Blood Count 4.7 #L Red Blood Count 3.87 L Hemoglobin 11.1 L Hematocrit 34.5 L Mean Corpuscular Volume 89.1 Mean Corpuscular Hemoglobin 28.7 L Mean Corpuscular Hemoglobin Concent 32.2 Red Cell Distribution Width 13.5 Platelet Count 307 Mean Platelet Volume 11.7 H Immature Granulocytes % 0.600 H Neutrophils % 49.2 Lymphocytes % 33.3 Monocytes % 9.1 Eosinophils % 7.0 Basophils % 0.8 Nucleated Red Blood Cells % 0.0 Immature Granulocytes # 0.030 Neutrophils # 2.3 Lymphocytes # 1.6 Monocytes # 0.4 Eosinophils # 0.3 Basophils # 0.0 Nucleated Red Blood Cells # 0.0 Sodium Level 140 Potassium Level 3.9 Chloride Level 103 Carbon Dioxide Level 25 Anion Gap 12 Blood Urea Nitrogen 6 L Creatinine 0.58 Est Glomerular Filtrat Rate mL/min > 60 Glucose Level 105 Calcium Level 8.8 Subjective 24 Hr Interval Summary Free Text/Dictation Possible dc am Exam/Review of Systems Exam Vitals Vital Signs Date Temp Pulse Resp B/P (MAP) Pulse Ox O2 O2 Flow FiO2 Time Delivery Rate 11/25/18 98.2 63 18 108/63 98 13:37 (78) 11/23/18 Room Air 14:23 Intake and Output 11/24/18 11/24/18 11/25/18 1515:00 23:00 07:00 IntakeIntake Total 340 ml 1080 ml 1420 ml BalanceBalance 340 ml 1080 ml 1420 ml Results Results 24hrs Laboratory Tests Test 11/25/18 05:34 White Blood Count 4.7 #L Red Blood Count 3.87 L Hemoglobin 11.1 L Hematocrit 34.5 L Mean Corpuscular Volume 89.1 Mean Corpuscular Hemoglobin 28.7 L Mean Corpuscular Hemoglobin Concent 32.2 Red Cell Distribution Width 13.5 Platelet Count 307 Mean Platelet Volume 11.7 H Immature Granulocytes % 0.600 H Neutrophils % 49.2 Lymphocytes % 33.3 Monocytes % 9.1 Eosinophils % 7.0 Basophils % 0.8 Nucleated Red Blood Cells % 0.0 Immature Granulocytes # 0.030 Neutrophils # 2.3 Lymphocytes # 1.6 Monocytes # 0.4 Eosinophils # 0.3 Basophils # 0.0 Nucleated Red Blood Cells # 0.0 Sodium Level 140 Potassium Level 3.9 Chloride Level 103 Carbon Dioxide Level 25 Anion Gap 12 Blood Urea Nitrogen 6 L Creatinine 0.58 Est Glomerular Filtrat Rate mL/min > 60 Glucose Level 105 Calcium Level 8.8 Medications Medication Current Medications Potassium Chloride/Dextrose/ Sod Cl 1,000 ml @ 60 mls/hr [id number] IV Last administered on 11/25/18 06:10; Admin Dose 60 MLS/HR; Start 11/22/18 at 14:57 Ondansetron HCl (Zofran Inj) 4 mg Q6H PRN IV NAUSEA/VOMITING Last administered on 11/23/18at 20:34; Admin Dose 4 MG; Start 11/22/18 at 15:00 Morphine Sulfate (morphine) 2 mg Q4H PRN IV .SEVERE PAIN 7-10 Last administered on 11/23/18at 23:09; Admin Dose 2 MG; Start 11/22/18 at 15:00 Pantoprazole (Protonix Iv) 40 mg DAILY@06 IV Last administered on 11/25/18at 06:11; Admin Dose 40 MG; Start 11/23/18 at 06:00 Piperacillin Sod/ Tazobactam Sod 100 ml @ 200 mls/hr Q6 IVPB Last administered on 11/25/18at 12:40; Admin Dose 200 MLS/HR; Start 11/23/18 at 12:30 Acetaminophen/ Hydrocodone Bitart ([place] (5/325)) 1 tab Q4H PRN PO MODERATE PAIN LEVEL 4-6 Last administered on 11/23/18at 15:29; Admin Dose 1 TAB; Start 11/23/18 at 13:00 Acetaminophen (Tylenol Tab) 650 mg Q4H PRN PO MILD PAIN(1-3)OR ELEVATED TEMP Last administered on 11/24/18at 21:46; Admin Dose 650 MG; Start 11/24/18 at 16:00 RENEE HENRY Nov 25, 2018 14:06
--- NOTE | 2018-11-25 14:31 | CONS ---
Assessment/Plan Assessment/Plan Assessment/Plan (Daily) Assessment/Plan Assessment/Plan Assessment/Plan (Daily) 1. A 1 cm carcinoid tumor in the sigmoid colon going up to muscularis mucosa, not involving the submucosa. Again, I will verify with the pathologist. 2. Diverticulitis. 3. Obesity. Plan Continue antibiotic Clear liquid diet Monitor WBC count and pain Advance diet as tolerated by patient Continue Cipro Flagyl for 4 more days as an outpatient repeat colonoscopy after 6 weeks for the removal of the carcinoid tumor Consultation Date/Type/Reason Admit Date/Time Nov 22, 2018 at 10:29 Initial Consult Date Requesting Provider: TALI VIDES MD Date/Time of Note DATE: 11/25/18 TIME: 14:30 24 HR Interval Summary Free Text/Dictation No abdominal pain and tolerating diet Constitutional: no complaints, improved Exam/Review of Systems Exam Vitals Vital Signs Date Temp Pulse Resp B/P (MAP) Pulse Ox O2 O2 Flow FiO2 Time Delivery Rate 11/25/18 98.2 63 18 108/63 98 13:37 (78) 11/23/18 Room Air 14:23 Intake and Output 11/24/18 11/24/18 11/25/18 1414:59 22:59 06:59 IntakeIntake Total 340 ml 1080 ml 1420 ml BalanceBalance 340 ml 1080 ml 1420 ml Constitutional: alert, oriented, well developed Psych: no complaints, nl mood/affect Head: normocephalic, atraumatic Eyes: nl conjunctiva, EOMI, nl lids, nl sclera, PERRL ENMT: nl external ears & nose, nl lips & teeth, nl nasal mucosa & septum Neck: supple, non-tender Respiratory: clear to auscultation, normal air movement Cardiovascular: regular rate and rhythm, nl pulses Gastrointestinal: soft, nl liver, spleen, non-tender Musculoskeletal: nl extremities to inspection, nl gait and stance Extremities: normal pulses 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, nl mental status, nl speech, nl strength Skin: nl turgor; No rash or lesions Lymph: nl lymph nodes Results Result Diagram: 11/25/18 0534 11/25/18 0534 Results 24hrs Laboratory Tests Test 11/25/18 05:34 White Blood Count 4.7 #L Red Blood Count 3.87 L Hemoglobin 11.1 L Hematocrit 34.5 L Mean Corpuscular Volume 89.1 Mean Corpuscular Hemoglobin 28.7 L Mean Corpuscular Hemoglobin Concent 32.2 Red Cell Distribution Width 13.5 Platelet Count 307 Mean Platelet Volume 11.7 H Immature Granulocytes % 0.600 H Neutrophils % 49.2 Lymphocytes % 33.3 Monocytes % 9.1 Eosinophils % 7.0 Basophils % 0.8 Nucleated Red Blood Cells % 0.0 Immature Granulocytes # 0.030 Neutrophils # 2.3 Lymphocytes # 1.6 Monocytes # 0.4 Eosinophils # 0.3 Basophils # 0.0 Nucleated Red Blood Cells # 0.0 Sodium Level 140 Potassium Level 3.9 Chloride Level 103 Carbon Dioxide Level 25 Anion Gap 12 Blood Urea Nitrogen 6 L Creatinine 0.58 Est Glomerular Filtrat Rate mL/min > 60 Glucose Level 105 Calcium Level 8.8 Medications Medication Current Medications Potassium Chloride/Dextrose/ Sod Cl 1,000 ml @ 60 mls/hr [id number] IV Last administered on 11/25/18 06:10; Admin Dose 60 MLS/HR; Start 11/22/18 at 14:57 Ondansetron HCl (Zofran Inj) 4 mg Q6H PRN IV NAUSEA/VOMITING Last administered on 11/23/18at 20:34; Admin Dose 4 MG; Start 11/22/18 at 15:00 Morphine Sulfate (morphine) 2 mg Q4H PRN IV .SEVERE PAIN 7-10 Last administered on 11/23/18 23:09; Admin Dose 2 MG; Start 11/22/18 at 15:00 Pantoprazole (Protonix Iv) 40 mg DAILY@06 IV Last administered on 11/25/18at 06:11; Admin Dose 40 MG; Start 11/23/18 at 06:00 Piperacillin Sod/ Tazobactam Sod 100 ml @ 200 mls/hr Q6 IVPB Last administered on 11/25/18at 12:40; Admin Dose 200 MLS/HR; Start 11/23/18 at 12:30 Acetaminophen/ Hydrocodone Bitart ([place] (5/325)) 1 tab Q4H PRN PO MODERATE PAIN LEVEL 4-6 Last administered on 11/23/18 15:29; Admin Dose 1 TAB; Start 11/23/18 at 13:00 Acetaminophen (Tylenol Tab) 650 mg Q4H PRN PO MILD PAIN(1-3)OR ELEVATED TEMP Last administered on 11/24/18at 21:46; Admin Dose 650 MG; Start 11/24/18 at 16:00 ORTIZ YODER MD Nov 25, 2018 14:31
[2018-11-25 20:00] VITALS: BP 102/73; PULSE 67; RESP 18
[2018-11-26 02:00] VITALS: BP 99/59; PULSE 65; RESP 18
[2018-11-26] MEDS: D5W-0.45 NACL + KCL 20 MEQ 1,000 ML IV SCH (04:37)
[2018-11-26] MEDS: PIPER-TAZO 3.375 GM IV (PMX) 100 ML IVPB SCH ×2 (05:55→13:06)
[2018-11-26] MEDS: PANTOPRAZOLE 40 MG INJ IV SCH (05:55)
[2018-11-26 07:41] VITALS: BP 115/61; PULSE 67; RESP 20
--- NOTE | 2018-11-26 15:13 | PDOCDIS ---
Discharge Instructions CONDITION [id number] Patient Condition: [id number] Guarded HOME CARE INSTRUCTIONS: [id number] Diet Instructions: [id number] ACTIVITY: [id number] Activity Restrictions: [id number] Slowly Increase Activity Rest between Activity Avoid heavy lifting Do not Drive Do not operate Machinery Do not operate Power Tool Avoid Heavy Housework [id number] Bathing Restrictions: [id number] Sponge Bath FOLLOW UP/APPOINTMENTS Follow-up Plan FU W/ PMD X 1 WEEK FU W/GI as recommended Call 911 or go to the nearest hospital if symptoms worsen- patient verbalized understanding discharge instructions Plan Dr Ag/staff RENEE HENRY Nov 26, 2018 15:13
[2018-11-26 15:14] VITALS: BP 118/58; PULSE 66; RESP 16
[2018-11-26] MEDS ORDERED: METR500T PO (15:22)
[2018-11-26] MEDS ORDERED: CIPR500T4 PO (15:22)
--- NOTE | 2018-11-26 15:23 | DS ---
Date/Time of Note Date/Time of Note DATE: 11/26/18 TIME: 15:23 Discharge Summary Admission/Discharge Info Admit Date/Time Nov 22, 2018 at 10:29 Discharge Date/Time Home Meds Active Scripts Metronidazole* (Flagyl*) 500 Mg Tablet, 500 MG PO TID for 5 Days, TAB Prov:MAGDALENA HENRYBIR 11/26/18 Ciprofloxacin Hcl* (Ciprofloxacin Hcl*) 500 Mg Tablet, 500 MG PO BID for 5 Days, TAB Prov:RENEE HENRY 11/26/18 Reported Medications Levothyroxine Sodium* (Levothyroxine Sodium*) 25 Mcg Tablet, 25 MCG PO BEFORE BREAKFAST, #30 TAB 11/22/18 Discontinued Reported Medications Levothyroxine Sodium* (Levothyroxine Sodium*) Unknown Strength Tablet, 1 TAB PO BEFORE BREAKFAST, #30 TAB 06/01/18 Follow-up Plan FU W/ PMD X 1 WEEK FU W/GI as recommended Call 911 or go to the nearest hospital if symptoms worsen- patient verbalized understanding discharge instructions Plan dw Dr Ag/staff Primary Care Provider [facility] Pending Labs Laboratory Tests Test 11/26/18 05:45 White Blood Count 5.9 10^3/ul (4.8-10.8) Red Blood Count 3.95 10^6/ul (4.20-5.40) Hemoglobin 11.3 g/dl (12.0-16.0) Hematocrit 35.5 % (37.0-47.0) Mean Corpuscular Volume 89.9 fl (82.0-101.0) Mean Corpuscular Hemoglobin 28.6 pg (29.0-33.0) Mean Corpuscular Hemoglobin Concent 31.8 g/dl (32.0-37.0) Red Cell Distribution Width 13.2 % (11.5-14.5) Platelet Count 317 10^3/UL (140-415) Mean Platelet Volume 11.9 fl (7.4-10.4) Immature Granulocytes % 0.500 % (0.001-0.429) Neutrophils % 58.4 % (39.0-77.0) Lymphocytes % 27.5 % (15.0-51.0) Monocytes % 8.1 % (0.0-11.0) Eosinophils % 4.7 % (0.0-7.0) Basophils % 0.8 % (0.0-2.0) Nucleated Red Blood Cells % 0.0 /100WBC (0.0-0.0) Immature Granulocytes # 0.030 10^3/ul (0.0-0.031) Neutrophils # 3.4 10^3/ul (1.6-7.5) Lymphocytes # 1.6 10^3/ul (0.8-2.9) Monocytes # 0.5 10^3/ul (0.3-0.9) Eosinophils # 0.3 10^3/ul (0.0-0.5) Basophils # 0.1 10^3/ul (0.0-0.1) Nucleated Red Blood Cells # 0.0 10^3/ul (0.0-0.0) Sodium Level 140 mmol/L (135-144) Potassium Level 4.1 mmol/L (3.5-5.1) Chloride Level 108 mmol/L (97-110) Carbon Dioxide Level 24 mmol/L (21-31) Anion Gap 8 (5-13) Blood Urea Nitrogen 6 mg/dl (7-20) Creatinine 0.53 mg/dl (0.44-1.00) Est Glomerular Filtrat Rate mL/min > 60 mL/min (>60) Glucose Level 108 mg/dl (70-220) Calcium Level 8.7 mg/dl (8.4-10.2) RENEE HENRY Nov 26, 2018 15:23
== END 2018-11-26 18:00 | disposition home or self-care (01) | DRG 392 ==
LOC: E/R 08:37 → 2NE 10:29
PROVIDERS: ADMIT Internal Medicine; ATTEND Internal Medicine
DX: K57.32 Diverticulitis of large intestine without perforation or abscess without bleeding (principal); D3A.025 Benign carcinoid tumor of the sigmoid colon; E03.9 Hypothyroidism, unspecified; F17.200 Nicotine dependence, unspecified, uncomplicated; E66.9 Obesity, unspecified; Z68.37 Body mass index [BMI] 37.0-37.9, adult
CPT/HCPCS: 36415; 74176; 80048; 80053; 81001; 81025; 83605; 83690; 83735; 84100; 84436; 84479; 85025; 87040; 96374; 96375; C9113; J2270; J2405; J2543; J3480; J7030

== ENCOUNTER 2019-02-12 18:55 | Emergency (ER) | payer OTHER ==
[~2019-02-12] VITALS: Ht 160 cm; Wt 97.3 kg
[~2019-02-12 18:55] MED LIST changes: +CIPR500T4 PO; +METR500T PO
[2019-02-12 19:20] VITALS: BP 121/76; PULSE 78; RESP 18; Ht 160 cm; Wt 97.3 kg
[2019-02-12] MEDS ORDERED: AZIT250T PO (22:39)
[2019-02-12] MEDS ORDERED: D-ME118S24 PO (22:39)
[2019-02-12] MEDS ORDERED: ALBU18HF INHALATION (22:41)
--- NOTE | 2019-02-12 22:44 | ERD ---
ER Documentation Chief Complaint Chief Complaint Wheezing X 1 day, flu symptoms X 1 wk HPI 43-year-old female past medical history of hypothyroidism and diabetes presents for flulike symptoms x8 days. Patient states that she has cough that is productive of phlegm and subjective fever at home. She began feeling short of breath today. She has been taking Robitussin, Tylenol, tea with honey without relief. She was going to follow with her primary care physician but there was no appointments available. No other treatment tried at home, no other modifying factors noted. ROS All systems reviewed and are negative except as per history of present illness. Medications Home Meds Active Scripts Albuterol Sulfate* (Ventolin HFA*) 18 Gm Hfa.aer.ad, 2 PUFF INHALATION Q4H PRN for cough/shortness of breath, #1 INHALER Prov:BERTHA GAMINO 02/12/19 D-Methorphan Hb/P-Epd HCl/Bpm (Uydmyahdmr-Dfivoyzvcic-Yc Syr) 118 Ml Syrup, 5 ML PO Q4H PRN for COUGH for 10 Days, #1 BOTTLE Prov:BERTHA GAMINO 02/12/19 Azithromycin* (Zithromax*) 250 Mg Tablet, 250 MG PO .ZPACK DIRECTED for respiratory infection, #6 TAB TAKE 500 MG (2 TABS) THE FIRST DAY THEN 250 MG (1 TAB) DAYS 2-5 Prov:BERTHA GAMINO 02/12/19 Metronidazole* (Flagyl*) 500 Mg Tablet, 500 MG PO TID for 5 Days, TAB Prov:RENEE HENRY 11/26/18 Ciprofloxacin Hcl* (Ciprofloxacin Hcl*) 500 Mg Tablet, 500 MG PO BID for 5 Days, TAB Prov:RENEE HENRY 11/26/18 Reported Medications Levothyroxine Sodium* (Levothyroxine Sodium*) 25 Mcg Tablet, 25 MCG PO BEFORE BREAKFAST, #30 TAB 11/22/18 Allergies Allergies: Coded Allergies: No Known Allergy (Verified , 11/22/18) PMhx/Soc History of Surgery: Yes (appendectomy 1998) Anesthesia Reaction: No Hx Neurological Disorder: No Hx Respiratory Disorders: No Hx Cardiac Disorders: No Hx Psychiatric Problems: No Hx Miscellaneous Medical Probl: No Hx Alcohol Use: No Hx Substance Use: No Hx Tobacco Use: No Smoking Status: Never smoker FmHx Family History: No coronary disease Physical Exam Vitals Vital Signs Date Temp Pulse Resp B/P (MAP) Pulse Ox O2 O2 Flow FiO2 Time Delivery Rate 02/12/19 98.1 78 18 121/76 100 19:20 (91) Physical Exam Const: No acute distress Head: Atraumatic Eyes: Normal Conjunctiva ENT: Normal External Ears, bilateral tympanic membrane intact without erythema or bulging noted, nose and Mouth examination normal, no tonsillar swelling or exudate noted Neck: Full range of motion. No meningismus. Resp: Clear to auscultation bilaterally, no wheezing, rales, rhonchi Cardio: Regular rate and rhythm, no murmurs Skin: No petechiae or rashes Ext: No cyanosis, or edema Neur: Awake and alert Psych: Normal Mood and Affect Procedures/MDM Medical Decision Making: Differential diagnosis includes but not limited to upper respiratory infection, pneumonia, sepsis, meningitis, influenza. Patient appeared well on physical examination, nontoxic appearing. Lungs were clear to auscultation bilaterally. There is low suspicion for pneumonia, sepsis, meningitis. Given the length of time the patient symptoms there is possibility that patient may have a bacterial respiratory infection Therefore patient will be given a Z-Angel. Patient given prescription for supportive medication(s). Patient advised to follow up with PCP in 1-2 days. Patient advised to return to ED for new or worsening symptoms. Patient stable on discharge from the ED. Disclaimer: Inadvertent spelling and grammatical errors are likely due to EHR/dictation software use and do not reflect on the overall quality of patient care. Also, please note that the electronic time recorded on this note does not necessarily reflect the actual time of the patient encounter. Departure Diagnosis: Primary Impression: Fever Fever type: unspecified Qualified Codes: R50.9 - Fever, unspecified Additional Impression: Respiratory infection Condition: Fair Patient Instructions: Fever Control (Adult) Additional Instructions: Call your primary care doctor TOMORROW for an appointment during the next 1-2 days.See the doctor sooner or return here if your condition worsens before your appointment time. BERTHA GAMINO DO February 12, 2019 22:44
== END 2019-02-12 23:10 | disposition home or self-care (01) ==
LOC: FTE 18:55
DX: J98.8 Other specified respiratory disorders (principal)
CPT/HCPCS: 99283

== ENCOUNTER 2019-03-01 06:03 | Day surgery (SDC) | payer OTHER ==
[~2019-03-01] VITALS: Ht 160 cm; Wt 96.1 kg
[~2019-03-01 06:03] MED LIST changes: +ALBU18HF INHALATION; +AZIT250T PO; +D-ME118S24 PO
[2019-03-01 07:18] VITALS: Ht 160 cm; Wt 96.1 kg
[2019-03-01] MEDS ORDERED: METFORMIN (07:25)
--- NOTE | 2019-03-01 07:40 | PREAC ---
Date/Time of Note Date/Time of Note DATE: 03/01/19 TIME: 07:38 Anesthesia Eval and Record Evaluation Time Pre-Procedure Interview DATE: 03/01/19 TIME: 07:38 Age 43 Sex female NPO: 8 hrs Preoperative diagnosis HISTORY OF COLON POLYP Planned procedure COLONOSCOPY WITH BIOPSIES Past Medical History Past Medical History: Includes Endo: Diabetes, Hypothyroid GI: Obesity, Other (CARCINOID TUMOR OF COLON) Surgery & Anesthesia Issues No known issue Meds Anticoagulation: No Beta Kris within 24 hr: No Reason Beta Kris not given: Pt. not on B-Kris Reported Medications [Metformin] No Conflict Check 03/01/19 Levothyroxine Sodium* (Levothyroxine Sodium*) 25 Mcg Tablet, 25 MCG PO BEFORE BREAKFAST, #30 TAB 11/22/18 Discontinued Scripts Albuterol Sulfate* (Ventolin HFA*) 18 Gm Hfa.aer.ad, 2 PUFF INHALATION Q4H PRN for cough/shortness of breath, #1 INHALER Prov:BERTHA GAMINO 02/12/19 D-Methorphan Hb/P-Epd HCl/Bpm (Rqxiylsdyt-Sbvgujqovao-Mi Syr) 118 Ml Syrup, 5 ML PO Q4H PRN for COUGH for 10 Days, #1 BOTTLE Prov:BERTHA GAMINO DO 02/12/19 Azithromycin* (Zithromax*) 250 Mg Tablet, 250 MG PO .ZPACK DIRECTED for respiratory infection, #6 TAB TAKE 500 MG (2 TABS) THE FIRST DAY THEN 250 MG (1 TAB) DAYS 2-5 Prov:BERTHA GAMINO 02/12/19 Metronidazole* (Flagyl*) 500 Mg Tablet, 500 MG PO TID for 5 Days, TAB Prov:RENEE HENRY 11/26/18 Ciprofloxacin Hcl* (Ciprofloxacin Hcl*) 500 Mg Tablet, 500 MG PO BID for 5 Days, TAB Prov:RENEE HENRY 11/26/18 Meds reviewed: Yes Allergies Coded Allergies: No Known Allergy (Verified , 03/01/19) Allergies Reviewed: Yes Labs/Studies Labs Reviewed: Reviewed by anesthesiologist test: Negative Pre-procedure Exam Airway: Adequate mouth opening, Adequate thyromental dist Mallampati: Mallampati II Teeth: Normal Lung: Normal Heart: Normal ASA Physical Status ASA physical status: 2 Emergency: None Planned Anesthetic General/MAC: MAC Planned Pain Management Parenteral pain med Pre-operative Attestations Prior to commencing anesthesia and surgery, the patient was re-evaluated, there was verification of: *The patient's identity *The results of appropriate recent lab work and preoperative vital signs *The above evaluation not changing prior to induction *Anesthetic plan, risk benefits, alternative and complications discussed with patient/family; questions answered; patient/family understands, accepts and wishes to proceed. Alexandre Amaral M.D. March 01, 2019 07:40
[2019-03-01 07:47] VITALS: BP 98/56; PULSE 59; RESP 16
[2019-03-01] MEDS ORDERED: PROPOFOL 40 ML ONE (08:05)
[2019-03-01] MEDS ORDERED: LIDOCAINE 100 MG SYRINGE ONE (08:05)
--- NOTE | 2019-03-01 08:27 | PAC ---
Date/Time of Note Date/Time of Note DATE: 03/01/19 TIME: 08:26 Post-Anesthesia Notes Post-Anesthesia Note Last documented vital signs HR 78 RR 14 BP 114/67 T 98.6 Activity: WNL Respiratory function: WNL Cardiovascular function: WNL Mental status: Baseline Pain reasonably controlled: Yes Hydration appropriate: Yes Nausea/Vomiting absent: Yes Alexanrde Amaral M.D. March 01, 2019 08:27
[2019-03-01 08:32] VITALS: BP 142/65; PULSE 69; RESP 16
[2019-03-01 08:58] VITALS: BP 118/69; PULSE 65; RESP 15
[2019-03-01 09:09] VITALS: BP 142/65; PULSE 69; RESP 16
== END 2019-03-01 11:37 | disposition home or self-care (01) ==
LOC: GIL 06:03
PROVIDERS: ATTEND Internal Medicine Gastroenterology
DX: K64.8 Other hemorrhoids (principal); K57.30 Diverticulosis of large intestine without perforation or abscess without bleeding; Z86.010 Personal history of colon polyps; E11.9 Type 2 diabetes mellitus without complications; E03.9 Hypothyroidism, unspecified; Z79.84 Long term (current) use of oral hypoglycemic drugs
CPT/HCPCS: 45378; 82962; J2001; Z7610

== ENCOUNTER 2019-05-17 17:14 | Emergency (ER) | payer OTHER ==
[~2019-05-17] VITALS: Ht 165.1 cm; Wt 99.1 kg
[~2019-05-17 17:14] MED LIST changes: -ALBU18HF INHALATION; +AMOX500C2 PO; -AZIT250T PO; -CIPR500T4 PO; -D-ME118S24 PO; +GUAI5SYR2 PO; +METFORMIN; -METR500T PO
[2019-05-17 17:17] VITALS: BP 124/76; PULSE 87; RESP 16; Ht 165.1 cm; Wt 99.1 kg
--- NOTE | 2019-05-17 17:30 | ERD ---
ER Documentation Chief Complaint Chief Complaint 10d c/o: sneezing, fever, sore throat. no relief w motrin HPI Patient is a 43-year-old female, no past medical history, presents the ER for concerns of nasal congestion, sneezing, tactile fevers, sore throat and a mild dry cough for the last 10 days. Patient reports trying luqh-smp-hhtamzl medications with no alleviation of symptoms. Patient denies any chest pain, shortness of breath, nausea, vomiting abdominal pain or diarrhea. No recent travel. No sick contacts. ROS All systems reviewed and are negative except as per history of present illness. Medications Home Meds Active Scripts Guaifenesin-Dextromethorphan* (Robitussin* DM) 100MG/10MG/5ML Syrup, 5 ML PO Q6H PRN for COUGH, #4 ML Prov:FITO PUGH PA-C 05/17/19 Amoxicillin* (Amoxicillin*) 500 Mg Cap, 500 MG PO BID for 10 Days, CAP Prov:FITO PUGH PA-C 05/17/19 Reported Medications [Metformin] No Conflict Check 03/01/19 Levothyroxine Sodium* (Levothyroxine Sodium*) 25 Mcg Tablet, 25 MCG PO BEFORE BREAKFAST, #30 TAB 11/22/18 Allergies Allergies: Coded Allergies: No Known Allergy (Verified , 03/01/19) PMhx/Soc History of Surgery: Yes (APPENDECTOMY) Anesthesia Reaction: No Hx Neurological Disorder: No Hx Respiratory Disorders: No Hx Cardiac Disorders: No Hx Psychiatric Problems: No Hx Miscellaneous Medical Probl: No Hx Alcohol Use: No Hx Substance Use: No Hx Tobacco Use: No FmHx Family History: No diabetes Physical Exam Vitals Vital Signs Date Temp Pulse Resp B/P (MAP) Pulse Ox O2 O2 Flow FiO2 Time Delivery Rate 05/17/19 98.5 87 16 124/76 98 17:17 (92) Physical Exam GENERAL: Well-developed, well-nourished male. Appears in no acute distress. HEAD: Normocephalic, atraumatic. No deformities or ecchymosis. EYE: Pupils equal, round, and reactive to light. EOMs intact. No conjunctival erythema. No eye discharge. ENT: External ear without any masses or tenderness. Auditory canals clear bilaterally. TM visualized bilaterally, non-erythematous, non-bulging. Nasal muc emily pink with no discharge. Oropharynx is pink without any tonsillar erythema or exudates. No uvula deviation. No kissing tonsils. Tender to palpation of bilateral frontal and maxillary sinuses. NECK: Supple. No meningismus. Normal ROM of the neck. LUNG: Clear to auscultation bilaterally. No rhonchi, wheezing, rales or coarse breath sounds. HEART: Regular rate and rhythm. No murmurs, rubs or gallops. EXTREMITES: Equal pulses bilaterally. No peripheral clubbing, cyanosis or edema. No unilateral leg swelling. NEUROLOGIC: Alert and oriented to person, place and time. Moving all four extremities. 5/5 strength in all extremities. Normal speech. Steady gait. SKIN: Normal color. Warm and dry. No rashes or lesions. Procedures/MDM MEDICAL DECISION MAKING: This is a 43-year-old female presents the ER for concerns of nasal congestion, cough, tactile fevers and sore throat for the last 10 days.. Vital signs were reviewed. Patient was afebrile. Patient was not hypoxic. ENT exam revealed findings consistent with sinusitis. Lung exam was normal. Given these findings, the patients presentation is most consistent with sinusitis. Patient states she is tried numerous vecy-aku-tynekll medications with minimal alleviation of symptoms. Trial of antibiotic's will be given as patient's symptoms have been persistent. Low suspicion for deep space infection, pneumonia, meningitis, otitis externa, acute otitis media, strep pharyngitis, epiglottitis or peritonsillar abscess. PRESCRIPTIONS: Amoxicillin, Robitussin DISCHARGE: At this time, patient is stable for discharge and outpatient management. Supportive therapies such as OTC throat lozenges, salt water gurgles, popsicles and jello discussed. I have instructed the patient to follow-up with his/her primary care physician in 1-2 days. I have instructed the patient to promptly return to the ER for any new or worsening symptoms including increased pain, swelling, fever, nausea, vomiting, weakness or difficulty breathing. The patient and/or family expressed understanding of and agreement with this plan. All questions were answered. Home care instructions were provided. Disclaimer: Inadvertent spelling and grammatical errors are likely due to EHR/dictation software use and do not reflect on the overall quality of patient care. Also, please note that the electronic time recorded on this note does not necessarily reflect the actual time of the patient encounter. Departure Diagnosis: Primary Impression: Sinusitis Sinusitis location: unspecified location Chronicity: unspecified Qualified Codes: J32.9 - Chronic sinusitis, unspecified Patient Instructions: Acute Sinusitis Referrals: [facility] Additional Instructions: Call your primary care doctor TOMORROW for an appointment during the next 1-2 days.See the doctor sooner or return here if your condition worsens before your appointment time. FITO PUGH PA-C May 17, 2019 17:30
== END 2019-05-17 17:24 | disposition home or self-care (01) ==
LOC: E/R 17:14
DX: J32.9 Chronic sinusitis, unspecified (principal); Z79.84 Long term (current) use of oral hypoglycemic drugs
CPT/HCPCS: 99283